=== PATIENT | female | born 1955 | race Hispanic/Latino ===

== ENCOUNTER 2022-03-05 10:57 | Emergency (ER) | payer OTHER ==
[2022-03-05] MEDS ORDERED: MORPHINE 4 MG/ML SYR ONE (11:48)
[2022-03-05] MEDS ORDERED: ONDANSETRON 4 MG/2 ML VIAL ONE (11:48)
[2022-03-05 12:05] LABS: Absolute Lymphocytes (CBC) 2.8 K/uL (0.7-4.9); Hematocrit 35.7 % (36.0-45.0); Lymphocytes % 18.4 % (15.3-44.8); MCV 91.8 fL (80-100); MPV 8.7 fL (7.6-11.3); RBC Red Blood Cell Count 3.89 M/uL (3.86-4.86)
[2022-03-05 12:06] LABS: Urine Blood Negative (Negative); Urine Glucose Negative (Negative); Urine Protein Negative (Negative); Urine Specific Gravity 1.025 (1.005-1.030); Urine pH 5.5 (5.0-7.0)
[2022-03-05 12:19] LABS: Albumin 3.8 g/dL (3.4-5.0); Bilirubin Total 3.4 mg/dL (0.2-1.0); Potassium 4.6 mmol/L (3.5-5.1); Protein, Total 8.6 g/dL (6.4-8.2)
--- NOTE | 2022-03-05 12:59 | RAD REPORT ---
EXAM DESCRIPTION: CTAbdomen Pelvis W Contrast - 03/05/2022 12:50 pm CLINICAL HISTORY: Abdominal pain. Right lower abdominal pain COMPARISON: Abdomen Pelvis W Contrast dated 02/23/2022 TECHNIQUE: Biphasic CT imaging of the abdomen and pelvis was performed with 100 ml non-ionic IV cont rast. All CT scans are performed using dose optimization technique as appropriate and may include automated exposure control or mA/KV adjustment according to patient size. FINDINGS: Linear atelectasis is present in both lung bases. Innumerable enhancing lesions are seen throughout the liver parenchyma compatible with metastatic dis ease. Cholecystectomy clips. The spleen, pancreas, adrenal glands and kidneys are within normal limit s. Soft tissue lesion within the ascending colon is again seen with several surrounding pericolonic lymp h nodes. The appendix is normal. No lytic or blastic bone lesion. IMPRESSION: Soft tissue mass suspected within the ascending colon with several surrounding lymph nod es likely neoplastic. Diffuse metastatic disease to the liver is present.
[2022-03-05] MEDS ORDERED: HYDROMORPHONE HCL 0.5 MG/0.5 ML INJ ONE (14:44)
[2022-03-05] MEDS ORDERED: PROMETHAZINE INJ 25 MG/ML AMP ONE (14:44)
[2022-03-05 16:43] VITALS: TEMP 97.8
[2022-03-05 17:15] VITALS: O2SAT 100
[2022-03-05 17:18] VITALS: BP 132/64
--- NOTE | 2022-03-07 09:34 | EDPHYS ---
Physician Documentation [facility] Name: Caren Bell Age: 66 yrs Sex: Female : 1955 Arrival Date: 03/05/2022 Time: 10:58 Bed 20 Private MD: ED Physician Zach Elise HPI: 03/05 11:23 This 66 yrs old Female presents to ER via Ambulatory with complaints of Flank jmm Pain - right. 11:23 The patient complains of pain in the right flank. Onset: The symptoms/episode jmm began/occurred gradually, 1 month(s) ago. Modifying factors: The symptoms are alleviated by nothing. the symptoms are aggravated by nothing. This is a 66 year old female with a history of dm, gastritis that presents to the ED with complaints of right flank ain, abdominal pain. Patient initially diagnosed with a colonic mass with possible metastasis. Patient states pain intensified yesterday. Advised by GI to go to the ER for further evaluation. . Historical: - Allergies: 11:14 PENICILLINS; burrows - PMHx: 11:14 diabetes mellitus; gastritis; burrows - PSHx: 11:14 bladder SX; Total abdominal hysterectomy; burrows - Immunization history:: Adult Immunizations up to date. - Social history:: Smoking status: Patient denies any tobacco usage or history of. Vital Signs: 11:09 BP 149 / 88; Pulse 87; Resp 17; Temp 97.8(T); Pulse Ox 98% ; Weight 68.04 kg; Height 5 burrows ft. 0 in. (152.40 cm); 12:15 BP 133 / 75; Pulse 62; Resp 16; Pulse Ox 100% on R/A; Pain 4/10; bm7 13:48 BP 113 / 68; Pulse 70; Resp 16; Pulse Ox 99% on R/A; bm7 14:43 BP 136 / 75; Pulse 70; Resp 16; Pulse Ox 99% on R/A; bm7 15:55 BP 136 / 72; Pulse 76; Resp 16; Pulse Ox 100% on R/A; bm7 16:27 BP 132 / 64; Pulse 72; Resp 16; Pulse Ox 100% on R/A; Pain 2/10; bm7 11:09 Body Mass Index 29.29 (68.04 kg, 152.40 cm) burrows MDM: 11:23 Patient medically screened. [facility] 15:58 Data reviewed: vital signs, nurses notes. Counseling: I had a detailed discussion with [facility] the patient and/or guardian regarding: the historical points, exam findings, and any diagnostic results supporting the discharge/admit diagnosis, lab results, radiology results, the need for outpatient follow up, to return to the emergency department if symptoms worsen or persist or if there are any questions or concerns that arise at home. 03/05 11:24 Order name: CBC with Diff; Complete Time: 12:19 [facility] 03/05 11:24 Order name: CMP; Complete Time: 12:23 [facility] 03/05 11:24 Order name: Lipase; Complete Time: 12:23 [facility] 03/05 11:24 Order name: CT Abd/Pelvis - IV Contrast Only; Complete Time: 13:05 [facility] 03/05 12:07 Order name: Urine Dipstick-Ancillary; Complete Time: 12:19 [facility] 03/05 11:24 Order name: IV Saline Lock; Complete Time: 11:57 [facility] 03/05 11:24 Order name: Labs collected and sent; Complete Time: 11:57 [facility] 03/05 11:24 Order name: Urine Dipstick-Ancillary (obtain specimen); Complete Time: 11:57 [facility] Administered Medications: 11:57 Drug: Zofran (Ondansetron) 4 mg Route: IVP; Site: right antecubital; bm7 16:29 Follow up: Response: No adverse reaction bm7 11:57 Drug: morphine 4 mg Route: IVP; Infused Over: 4 mins; Site: right antecubital; bm7 12:15 Follow up: Response: Pain is decreased bm7 14:42 Drug: Promethazine 12.5 mg Route: IVP; Site: right antecubital; bm7 16:28 Follow up: Response: No adverse reaction bm7 14:43 Drug: Dilaudid (HYDROmorphone) 0.5 mg Route: IVP; Site: right antecubital; bm7 16:29 Follow up: Response: No adverse reaction bm7 Disposition: 18:19 Co-signature as Attending Physician, Zach Elise MD. rn Disposition Summary: 03/05/22 16:01 Discharge Ordered Location: Home [facility] Condition: Stable [facility] Diagnosis - Abdominal pain, unspecified jmm Followup: [facility] - With: Private Physician - When: 2 - 3 days - Reason: Recheck today's complaints, Continuance of care, Re-evaluation by your physician Discharge Instructions: - Discharge Summary Sheet [facility] - Abdominal Pain, Adult [facility] Forms: - Medication Reconciliation Form [facility] - Thank You Letter [facility] - Antibiotic Education [facility] - Prescription Opioid Use [facility] Prescriptions: - Tylenol-Codeine #3 300 mg-30 mg Oral - take 2 tablet by ORAL route every 6 hours As needed; 30 tablet; Refills: 0, [facility] Product Selection Permitted - promethazine 25 mg Oral Tablet - take 1 tablet by ORAL route every 6 hours As needed; 30 tablet; Refills: 0, [facility] Product Selection Permitted Signatures: Dispatcher [employer] Michael You PA PA jmm Nieto, Roman, MD MD rn McCarthy, Brittany RN RN bm7 Breana-Nel Mathew RN RN burrows
--- NOTE | 2022-03-07 09:34 | ER ---
Nurse's Notes [facility] Name: Caren Bell Age: 66 yrs Sex: Female : 1955 Arrival Date: 03/05/2022 Time: 10:58 Bed 20 Private MD: Diagnosis: Abdominal pain, unspecified Presentation: 03/05 11:09 Chief complaint: Patient states: pt presented with right abdominal pain radiates to burrows right back. pt reports recent visit to ED February 23 2022 and dx with colon cancer that mets to liver. Coronavirus screen: Vaccine status: Patient reports receiving the 2nd dose of the covid vaccine. Ebola Screen: Patient denies travel to an Ebola-affected area in the 21 days before illness onset. Initial Sepsis Screen: Does the patient meet any 2 criteria? No. Patient's initial sepsis screen is negative. Does the patient have a suspected source of infection? No. Patient's initial sepsis screen is negative. Risk Assessment: Do you want to hurt yourself or someone else? Patient reports no desire to harm self or others. Onset of symptoms was February 23, 2022. 11:09 Method Of Arrival: Ambulatory bur[facility] 11:09 Acuity: MEHUL 3 burrows Triage Assessment: 11:14 General: Appears in no apparent distress. Behavior is calm, cooperative. Pain: burrows Complains of pain in abdomen. Historical: - Allergies: 11:14 PENICILLINS; burrows - PMHx: 11:14 diabetes mellitus; gastritis; burrows - PSHx: 11:14 bladder SX; Total abdominal hysterectomy; burrows - Immunization history:: Adult Immunizations up to date. - Social history:: Smoking status: Patient denies any tobacco usage or history of. Screenin:14 Abuse screen: Denies threats or abuse. Nutritional screening: No deficits noted. bm7 Tuberculosis screening: No symptoms or risk factors identified. Fall Risk None identified. Assessment: 12:14 Reassessment: Patient and/or family updated on plan of care and expected duration. Pain bm7 level reassessed. Patient is alert, oriented x 3, equal unlabored respirations, skin warm/dry/pink. Patient states symptoms have improved. 12:57 Reassessment: Patient and/or family updated on plan of care and expected duration. Pain bm7 level reassessed. Patient is alert, oriented x 3, equal unlabored respirations, skin warm/dry/pink. 14:21 Reassessment: Patient and/or family updated on plan of care and expected duration. Pain bm7 level reassessed. Patient is alert, oriented x 3, equal unlabored respirations, skin warm/dry/pink. 15:23 Reassessment: Patient and/or family updated on plan of care and expected duration. Pain bm7 level reassessed. Patient is alert, oriented x 3, equal unlabored respirations, skin warm/dry/pink. Vital Signs: 11:09 BP 149 / 88; Pulse 87; Resp 17; Temp 97.8(T); Pulse Ox 98% ; Weight 68.04 kg; Height 5 burrows ft. 0 in. (152.40 cm); 12:15 BP 133 / 75; Pulse 62; Resp 16; Pulse Ox 100% on R/A; Pain 4/10; bm7 13:48 BP 113 / 68; Pulse 70; Resp 16; Pulse Ox 99% on R/A; bm7 14:43 BP 136 / 75; Pulse 70; Resp 16; Pulse Ox 99% on R/A; bm7 15:55 BP 136 / 72; Pulse 76; Resp 16; Pulse Ox 100% on R/A; bm7 16:27 BP 132 / 64; Pulse 72; Resp 16; Pulse Ox 100% on R/A; Pain 2/10; bm7 11:09 Body Mass Index 29.29 (68.04 kg, 152.40 cm) ED Course: 10:58 Patient arrived in ED. am2 11:10 Michael Alcala PA is PHCP. [facility] 11:10 Zach Elise MD is Attending Physician. [facility] 11:14 Triage completed. burrows 11:34 Reyna Mooney, ARAM is Primary Nurse. bm7 11:56 Inserted saline lock: 20 gauge in right antecubital area, using aseptic technique. kc6 Blood collected. 12:07 Lipase Sent. kc6 12:07 CMP Sent. kc6 12:14 Patient has correct armband on for positive identification. Bed in low position. Call bm7 light in reach. Side rails up X 1. Client placed on continuous cardiac and pulse oximetry monitoring. NIBP monitoring applied. 12:[address] bm7 12:52 CT Abd/Pelvis - IV Contrast Only In Process Unspecified. EDMS 12:57 Patient moved back from [place]. bm7 12:57 Initial lab(s) drawn, by me, sent to lab. Urine collected: clean catch specimen, mica bm7 colored. 16:27 No provider procedures requiring assistance completed. IV discontinued, intact, bm7 bleeding controlled, No redness/swelling at site. Pressure dressing applied. Administered Medications: 11:57 Drug: Zofran (Ondansetron) 4 mg Route: IVP; Site: right antecubital; bm7 16:29 Follow up: Response: No adverse reaction bm7 11:57 Drug: morphine 4 mg Route: IVP; Infused Over: 4 mins; Site: right antecubital; bm7 12:15 Follow up: Response: Pain is decreased bm7 14:42 Drug: Promethazine 12.5 mg Route: IVP; Site: right antecubital; bm7 16:28 Follow up: Response: No adverse reaction bm7 14:43 Drug: Dilaudid (HYDROmorphone) 0.5 mg Route: IVP; Site: right antecubital; bm7 16:29 Follow up: Response: No adverse reaction bm7 Medication: 12:14 VIS not applicable for this client. bm7 Outcome: 16:01 Discharge ordered by . [facility] 16:27 Discharged to home via wheelchair, with family. bm7 16:27 Condition: improved 16:27 Discharge instructions given to patient, family, Instructed on discharge instructions, follow up and referral plans. medication usage, Demonstrated understanding of instructions, follow-up care, medications, Prescriptions given X 2. 16:29 Patient left the ED. bm7 Signatures: Dispatcher [employer] EDOH Michael Alcala PA PA Kell Hylton am2 Reyna Mooney, RN RN bm7 Nel Ausitn RN RN ha Campbell, Kaitlyn kc6
== END 2022-03-05 16:29 | disposition home or self-care (01) ==
LOC: ER 10:57
DX: R10.9 Unspecified abdominal pain (principal); E11.9 Type 2 diabetes mellitus without complications; Z88.0 Allergy status to penicillin
CPT/HCPCS: 85025; 36415; 81003; 83690; 80053; 74177; Q9967; J2550; J1170; J2405; 96374; 96375; 99284